=== PATIENT | female | born 2000 | race Asian ===

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

== ENCOUNTER 2020-12-25 12:22 | Emergency (ER) | payer OTHER, SELFPAY ==
[2020-12-25 12:24] VITALS: BP 121/79; PULSE 89; RESP 16; TEMP 36.6; O2SAT 100; BMI 24.5
--- NOTE | 2020-12-25 12:38 | EKG12_ITS ---
Test Reason : Blood Pressure : / mmHG Vent. Rate : 083 BPM Atrial Rate : 083 BPM P-R Int : 150 ms QRS Dur : 082 ms QT Int : 358 ms P-R-T Axes : 048 078 -05 degrees QTc Int : 420 ms Normal sinus rhythm Normal ECG Confirmed by ALEISHA KOEHLER, TESSA ([id number]), design editor EMILY CAZARES ([id number]) on 12/30/2020 7:40:09 AM Referred By: NICOLE Confirmed By:TSESA MORAES MD
[2020-12-25 13:44] LABS: Bacteria 0 SEEN /hpf (None Seen); Mucous, Urine 0 SEEN /hpf (<or=2+)
[2020-12-25 13:58] LABS: Absolute Lymphocyte Count 1.43 X10^3/uL (0.83-4.51); Absolute Neutrophil Count 8.3 X10^3/uL (2.0-7.7); Basophil# 0.02 X10^3/uL; Basophil% 0.2 % (0-1); Eosinophil# 0.07 X10^3/uL; Eosinophils% 0.7 % (0-5); Hematocrit 41.1 % (37-47); Hemoglobin 13.1 g/dL (12.0-15.0); Lymphocyte # 1.43 X10^3/ul (0.83-4.51); Lymphocyte % 13.6 % (19-41); Mean Corp Hgb Conc 31.9 g/dL (32-36); Mean Corpuscular Hgb 29.7 pg (27.0-32.0); Mean Corpuscular Volume 93.2 fL (81-99); Mean Platelet Vol. 10.5 fl (6.2-12.0); Monocyte% 6.6 % (0-10); NRBC Flagged by Analyzer 0 % (0-5); Neutrophil # 8.29 X10^3/uL (2.7-7.7); Neutrophil % 78.7 % (47-70); Platelet Count 257 K/mm3 (150-450); RBC Distribution Width CV 12.6 % (11.6-14.6); RBC Distribution Width SD 43.6 fl (35.1-43.9); Red Blood Count 4.41 M/mm3 (4.2-5.4); White Blood Count 10.5 K/mm3 (4.4-11.0)
--- NOTE | 2020-12-25 14:00 | RAD_ITS ---
STUDY: X-RAY CHEST REASON FOR EXAM: Female, 20 years old. Chest tightness. Difficulty breathing. TECHNIQUE: Single AP portable view of the chest. COMPARISON: None. FINDINGS: The lungs are clear and expanded. Scattered calcified granulomas. There is no demonstrated pleural abnormality. Normal size heart. Normal mediastinum and zohra. Normal visualized pulmonary arteries. Normal visualized aortic arch and descending thoracic aorta. Normal visualized thoracic spine. Normal visualized ribs, clavicles, and shoulders. There is no demonstrated abnormality of the visualized soft tissue structures of the upper abdomen. RAD/Chest 1 View (Portable) IMPRESSION: Normal x-ray examination of the chest. Scattered calcified granulomas. Electronically Signed: Collin Miguel MD at 14:18 EDT , Service support ,
[2020-12-25 14:03] LABS: Color, Urine Yellow (Yellow); Glucose, Dipstick Normal (Normal); Ketone-Dipstick Negative (Negative); Leukocyte Esterase-Dipstick Negative /ul (Negative); Nitrite-Dipstick Negative (Negative); Occult Blood-Urine 10 /ul (Negative); Protein-Dipstick Negative (Negative); Urine Bilirubin Dipstick Negative (Negative); Urine Clarity Clear (Clear); Urine Urobilinogen Normal (Normal)
[2020-12-25 14:09] LABS: Anion Gap 3 (5-15); BUN 11 mg/dL (7-18); BUN/Creat Ratio 15.6 RATIO (10-20); Calcium,Total 8.7 mg/dL (8.5-10.1); Chloride 110 mmol/L (98-107); EST Glomerular Filtration Rate 112 mL/min (>60); Est Glom Filt Rate - Afr Amer 136 mL/min (>60); Glucose 98 mg/dL (74-106); Potassium 3.8 mmol/L (3.5-5.1); Sodium Level 141 mmol/L (136-145)
--- NOTE | 2020-12-25 14:09 | EX.ED.DYSGE1 ---
HPI History of Present Illness Chief Complaint: Chest Other Informant: patient Onset/Context/Timing Onset: Today Current Severity: Mild Maximum Severity: Moderate Narrative Narrative: Patient presents with chest pain and shortness of breath. She states she had a headache and did not feel well yesterday. This morning after eating breakfast she developed chest pain and felt her heart was racing. She did feel short of breath. She states symptoms are improved at this time but not completely resolved. She does report a history of irregular heartbeat that she has been to the hospital for multiple times. She does not know the specific diagnosis but states her doctor told her it was nothing to worry about. [facility] Medical History Irregular heartbeat Home Medications Control 1 tab PO/SL DAILY 12/25/20 [History Last Taken Unknown] Allergy/AdvReac Type Severity Reaction Status Date / Time No Known Allergies Allergy Verified 12/25/20 12:26 Social History Smoking Status: Never smoker ROS ROS ED Constitutional Constitutional ED: Denies chills or fever(s) Eyes Eyes: Denies change in vision ENT ENT ED: Denies sore throat Cardiovascular Cardiovascular: Reports chest pain Respiratory/Chest Respiratory/Chest: Reports dyspnea; Denies cough Gastrointestinal Gastrointestinal: Denies abdominal pain, diarrhea, nausea or vomiting Genitourinary Genitourinary ED: Denies dysuria Musculoskeletal Musculoskeletal: Denies back pain Integumentary Denies rash Neurologic Neurologic: Reports headache(s); Denies weakness Psychiatric Psychiatric: Denies anxiety or depression Allergic/Immunologic Allergic/Immunologic ED: Denies urticaria EXAM Physical Exam Const Vital Signs: 12/25/20 12:24 12/25/20 13:41 Temperature 97.8 F Temperature Source Temporal Pulse Rate 89 Respiratory Rate 16 Respiratory Effort Normal Non-Labored Blood Pressure 121/79 H Blood Pressure Mean 93 Pulse Ox 100 Oxygen Delivery Method Room Air Positive well nourished and well developed General Appearance ED: well developed HEENT Reports normocephalic and head/scalp atraumatic Eyes PERRL and EOMs intact bilaterally Neck supple Chest Wall inspection of chest normal and palpation of chest normal Resp normal respiratory effort and clear to auscultation bilaterally Cardio regular rate and regular rhythm GI normal to inspection, nondistended, normoactive bowel sounds Palpation: soft Extremity normal to inspection Neuro oriented x3 and no sensory deficits noted Sensorium / Orientation: alert Motor Exam: strength 5/5 throughout Psych mental status grossly normal Skin no rashes or lesions noted MDM MDM MDM Narrative Medical decision making narrative: Labs, EKG, chest x-ray obtained. Lab Data Attestation: I reviewed the patient's lab results. Labs: Laboratory Results - last 24 hr 12/25/20 12/25/20 12/25/20 13:34 13:45 13:45 WBC 10.5 RBC 4.41 Hgb 13.1 Hct 41.1 MCV 93.2 MCH 29.7 MCHC 31.9 L RDW Std Deviation 43.6 RDW Coeff of Nusrat 12.6 Plt Count 257 MPV 10.5 Immature Gran % (Auto) 0.200 Neut % (Auto) 78.7 H Lymph % (Auto) 13.6 L Rogers % (Auto) 6.6 Eos % (Auto) 0.7 Baso % (Auto) 0.2 Absolute Neuts (auto) 8.3 H Absolute Lymphs (auto) 1.43 Nucleated RBC % 0 D-Dimer Quant (PE/DVT) Sodium 141 Potassium 3.8 Chloride 110 H Carbon Dioxide 28.0 Anion Gap 3 L BUN 11 Creatinine 0.70 Estim Creat Clear Calc 110.70 Est GFR (MDRD) Af Amer 136 Est GFR (MDRD) Non-Af 112 BUN/Creatinine Ratio 15.6 Glucose 98 Calcium 8.7 Troponin I High Sens Urine Color Yellow Urine Clarity Clear Urine pH 7.0 Ur Specific [place] 1.010 Urine Protein Negative Urine Glucose (UA) Normal Urine Ketones Negative Urine Occult Blood 10 H Urine Nitrite Negative Urine Bilirubin Negative Urine Urobilinogen Normal Ur Leukocyte Esterase Negative Urine RBC 0-5 SEEN Urine WBC 0-5 SEEN Ur Squamous Epith Cells 0-5 SEEN Urine Bacteria 0 SEEN Urine Mucus 0 SEEN Urine Test Negative 12/25/20 12/25/20 13:45 14:21 WBC RBC Hgb Hct MCV MCH MCHC RDW Std Deviation RDW Coeff of Nusrat Plt Count MPV Immature Gran % (Auto) Neut % (Auto) Lymph % (Auto) [place] % (Auto) Eos % (Auto) Baso % (Auto) Absolute Neuts (auto) Absolute Lymphs (auto) Nucleated RBC % D-Dimer Quant (PE/DVT) <= 0.27 Sodium Potassium Chloride Carbon Dioxide Anion Gap BUN Creatinine Estim Creat Clear Calc Est GFR (MDRD) Af Amer Est GFR (MDRD) Non-Af BUN/Creatinine Ratio Glucose Calcium Troponin I High Sens 3 Urine Color Urine Clarity Urine pH Ur Specific [place] Urine Protein Urine Glucose (UA) Urine Ketones Urine Occult Blood Urine Nitrite Urine Bilirubin Urine Urobilinogen Ur Leukocyte Esterase Urine RBC Urine WBC Ur Squamous Epith Cells Urine Bacteria Urine Mucus Urine Test Radiography Chest X-Ray - ED: 1 View, Read by ED Physician, Normal, Heart, Lungs and Mediastinum Diagnostic Testing: Radiology Impression Chest X-Ray 12/25/20 14:00 IMPRESSION: Normal x-ray examination of the chest. Scattered calcified granulomas. Electronically Signed: Collin Miguel MD at 14:18 EDT , Service support , EKG Initial EKG: Attestation: I personally reviewed and interpreted this EKG as follows: Interpretation: Sinus Rhythm (Sinus 83 with no acute ischemia.) Treatment and Re-Evaluation Comments:: Lab work is reviewed and unremarkable. D-dimer and troponin both negative. Chest x-ray per my interpretation shows no abnormalities. Radiologist interpretation is reviewed. On repeat examination patient resting comfortably. Test results discussed with her. She is comfortable with discharge and will follow up as needed. Return instructions provided. I will give her information for cardiology because she continues to have episodes of irregular heartbeat. Discharge Plan Triage Chief Complaint: Chest Other ED Provider: Millicent Gray Dx/Rx/DC Orders Clinical Impression: Chest pain, Palpitations Instructions: ED Chest Pain, Uncertain Cause, ED Palpitations Prescriptions: No Action Control 1 tab PO/SL DAILY RF: 0 Primary Care Provider: [facility] Doctor,Out of Referrals: Marshall Quigley MD [STAFF PHYSICIAN] - As Needed [facility] Doctor,Out of [Primary Care Provider] - Disposition Disposition: Home, Self Care
[2020-12-25 14:20] LABS: Internal QC Validated? YES +Cl - CLEAR BKGD; Pregnancy, Urine Negative Negative; Red Blood Cells-Urine 0-5 SEEN /hpf (0-5); Squamous Epithelial Cells - UA 0-5 SEEN /hpf (5-10); White Blood Cells 0-5 SEEN /hpf (0-5)
[2020-12-25 14:43] LABS: D-Dimer Quantitative (DVT/PE) <= 0.27 FEU/ug/m (0.27-0.49)
[2020-12-25 14:47] LABS: Troponin-I HS 3 pg/mL (3.0-54.0)
[2020-12-25 15:01] VITALS: BP 124/77; PULSE 62; RESP 15; O2SAT 98
== END 2020-12-25 15:02 | disposition home or self-care (01) ==
LOC: ED 14:55
PROVIDERS: Emergency Provider Emergency Medicine
DX: R07.89 Other chest pain (principal); R00.2 Palpitations; R06.02 Shortness of breath; R51.9 Headache, unspecified
CPT/HCPCS: 71045; 80048; 81001; 81025; 84484; 85025; 85379; 93005; 99285; A4216

== ENCOUNTER 2021-09-23 13:39 | Emergency (ER) | payer OTHER, SELFPAY ==
[2021-09-23 13:40] VITALS: BP 116/82; PULSE 113; RESP 15; TEMP 35.8; O2SAT 98; BMI 24.7
--- NOTE | 2021-09-23 14:03 | EDS_ITS ---
HPI History of Present Illness Chief Complaint: Nausea/Vomiting Informant: patient Narrative Narrative: Patient is a 20-year-old female denies any significant past medical history no surgical history presenting with nausea, vomiting, epigastric discomfort after binge drinking last night. Patient states she started 7 times since 4 AM this morning. Denies any black or blood in her vomit. States she has not had a bowel movement today. No she does feel little dizzy. States that she drank a mixture of beer, fireball whiskey and 4 [place] last night. Patient does think she threw up her control pill this morning. No other complaints at this time. [facility] Medical History Irregular heartbeat Home Medications drospirenone-ethinyl estradiol 1 ea PO DAILY 03/06/19 [History Last Taken 03/06/19] naproxen 500 mg PO BID PRN #20 tab 03/13/19 [Rx Last Taken Unknown] pseudoephedrine-guaifenesin 1 ea PO BID #8 tab.er.12h 03/13/19 [Rx Last Taken Unknown] Control 1 tab PO/SL DAILY 12/25/20 [History Last Taken Unknown] ondansetron 4 mg PO Q6H PRN #10 tab 09/23/21 [Rx Last Taken Unknown] Allergy/AdvReac Type Severity Reaction Status Date / Time No Known Allergies Allergy Verified 12/31/20 08:51 Social History Smoking Status: Never smoker ROS [facility] ED Constitutional Constitutional ED: Denies chills or fever(s) Eyes Eyes: Denies change in vision ENT ENT ED: Denies rhinorrhea or sore throat Cardiovascular Cardiovascular: Reports racing heartbeat; Denies chest pain Respiratory/Chest Respiratory/Chest: Denies cough or dyspnea Gastrointestinal Gastrointestinal: Reports abdominal pain, nausea and vomiting; Denies constipation or diarrhea Genitourinary Genitourinary ED: Denies dysuria or hematuria Musculoskeletal Musculoskeletal: Denies myalgias Integumentary Denies rash Neurologic Neurologic: Denies headache(s) or weakness Psychiatric Psychiatric: Denies depression EXAM Physical Exam Const Vital Signs: 09/23/21 13:40 09/23/21 14:27 Temperature 96.5 F L Temperature Source Temporal Pulse Rate 113 H 64 Respiratory Rate 15 18 Blood Pressure 116/82 H Blood Pressure Mean 93 Pulse Ox 98 97 Oxygen Delivery Method Room Air Room Air Positive well nourished and well developed General Appearance ED: well developed and NAD HEENT Reports dry mucous membranes Negative for trauma or tenderness Mouth ED: Yes dry mucous membranes Mouth: dry mucous membranes Eyes PERRL and EOMs intact bilaterally Neck supple Chest Wall inspection of chest normal Resp normal respiratory effort and clear to auscultation bilaterally Cardio regular rhythm and no murmurs Rate: tachycardic GI normal to inspection, nondistended, normoactive bowel sounds and non-tender Palpation: soft Back/Spine no CVA tenderness Extremity normal to inspection Neuro oriented x3 and CN's II-XII intact bilaterally Sensorium / Orientation: alert Motor Exam: Negative for general weakness Psych mental status grossly normal Skin no rashes or lesions noted and no wounds MDM MDM MDM Narrative Medical decision making narrative: Patient evaluated for nausea and vomiting after binge drinking last night. I suspect her symptoms are secondary to the sequelae of alcohol intoxication. She will be given IV fluids, IV Pepcid and IV Zofran. Physical exam is relatively benign however she does appear mildly dehydrated. Will check labs looking for signs of transaminitis or pancreatitis. Will reevaluate and p.o. challenge. If patient is feeling better will discharge home with Zofran. As patient did vomit up her control pill this morning she is counseled to use a backup method such as condoms for contraceptives. Repeat evaluation patient significantly improved. Will discharge home with prescription for Zofran. Lab Data Labs: Laboratory Results - last 24 hr 09/23/21 09/23/21 09/23/21 14:05 14:05 14:05 WBC 5.7 RBC 4.58 Hgb 13.8 Hct 41.7 MCV 91.0 MCH 30.1 MCHC 33.1 RDW Std Deviation 41.2 RDW Coeff of Nusrat 12.5 Plt Count 283 MPV 10.0 Immature Gran % (Auto) 0.200 Neut % (Auto) 65.0 Lymph % (Auto) 25.3 [place] % (Auto) 7.9 Eos % (Auto) 1.1 Baso % (Auto) 0.5 Absolute Neuts (auto) 3.7 Absolute Lymphs (auto) 1.44 Nucleated RBC % 0 Sodium 140 Potassium 3.8 Chloride 106 Carbon Dioxide 26.0 Anion Gap 8 BUN 8 Creatinine 0.70 Estim Creat Clear Calc 106.05 Est GFR (MDRD) Af Amer 135 Est GFR (MDRD) Non-Af 112 BUN/Creatinine Ratio 11.4 Glucose 102 Calcium 8.7 Total Bilirubin 0.40 AST 12 L ALT 18 Alkaline Phosphatase 58 Total Protein 8.2 Albumin 3.7 Globulin 4.5 H Albumin/Globulin Ratio 0.8 L Lipase 99 Serum , Qual NEGATIVE Discharge Plan Triage Chief Complaint: Nausea/Vomiting ED Provider: Lynne Willams Dx/Rx/DC Orders Clinical Impression: Nausea & vomiting, Hangover effect Instructions: ED Vomiting (Adult) Prescriptions: New ondansetron 4 mg tablet,disintegrating 4 mg PO Q6H PRN (Reason: nausea and vomiting) Qty: 10 RF: 0 No Action drospirenone-ethinyl estradiol 1 EACH tablet 1 ea PO DAILY RF: 0 naproxen 500 MG tablet 500 mg PO BID PRN Qty: 20 RF: 0 pseudoephedrine-guaifenesin 1 EACH tablet extended release 12 hr 1 ea PO BID Qty: 8 RF: 0 Control 1 tab PO/SL DAILY RF: 0 Primary Care Provider: Care Physician,No Primary Referrals: [facility] [GROUP OF PHYSICIANS] - Care Physician,No Primary [Primary Care Provider] - Activity Restrictions/Additional Instructions: Since you possibly threw up your control pill today please use a backup contraceptive method such as condoms or abstinence until your next cycle. Avoid binge drinking. Disposition Disposition: Home, Self Care
[2021-09-23] MEDS: Ondansetron 4 MG/2 ML Vial IV (14:05)
[2021-09-23] MEDS: 0.9% Normal Saline 1,000 ML 1000 ML IV (14:05)
[2021-09-23 14:14] LABS: Absolute Lymphocyte Count 1.44 X10^3/uL (0.83-4.51); Absolute Neutrophil Count 3.7 X10^3/uL (2.0-7.7); Basophil# 0.03 X10^3/uL; Basophil% 0.5 % (0-1); Eosinophil# 0.06 X10^3/uL; Eosinophils% 1.1 % (0-5); Hematocrit 41.7 % (37-47); Hemoglobin 13.8 g/dL (12.0-15.0); Lymphocyte # 1.44 X10^3/ul (0.83-4.51); Lymphocyte % 25.3 % (19-41); Mean Corp Hgb Conc 33.1 g/dL (32-36); Mean Corpuscular Hgb 30.1 pg (27.0-32.0); Monocyte# 0.45 X10^3/uL; Monocyte% 7.9 % (0-10); NRBC Flagged by Analyzer 0 % (0-5); Platelet Count 283 K/mm3 (150-450); RBC Distribution Width CV 12.5 % (11.6-14.6); RBC Distribution Width SD 41.2 fl (35.1-43.9); Red Blood Count 4.58 M/mm3 (4.2-5.4); White Blood Count 5.7 K/mm3 (4.4-11.0)
[2021-09-23] MEDS: Famotidine 200 MG/20 ML MDV 20 MG in 0.9% Normal Saline (Pres. free 8 ML 300 MG IV (14:26)
[2021-09-23 14:27] VITALS: PULSE 64; RESP 18; O2SAT 97
[2021-09-23 14:30] LABS: ALB/GLOB Ratio 0.8 RATIO (0.9-2.4); AST(SGOT) 12 U/L (15-37); Alanine Aminotransfer ALT/SGPT 18 U/L (13-56); Albumin, Serum 3.7 g/dL (3.2-5.0); Alkaline Phosphatase 58 U/L (45-117); Anion Gap 8 (5-15); BUN 8 mg/dL (7-18); BUN/Creat Ratio 11.4 RATIO (10-20); Calcium,Total 8.7 mg/dL (8.5-10.1); Chloride 106 mmol/L (98-107); EST Glomerular Filtration Rate 112 mL/min (>60); Est Glom Filt Rate - Afr Amer 135 mL/min (>60); Estimated Creatinine Clearance 106.05 ml/min; Globulin 4.5 g/dL (2.2-4.2); Glucose 102 mg/dL (74-106); Lipase 99 U/L (73-393); Potassium 3.8 mmol/L (3.5-5.1); Protein, Total 8.2 g/dL (6.4-8.2); Sodium Level 140 mmol/L (136-145)
[2021-09-23 14:40] LABS: Internal QC Validated? YES +Cl - CLEAR BKGD; Pregnancy, Serum, hCG Quali. NEGATIVE Negative
[2021-09-23 15:21] VITALS: PULSE 70; RESP 16; O2SAT 99
== END 2021-09-23 15:22 | disposition home or self-care (01) ==
PROVIDERS: Emergency Provider Emergency Medicine; Visit Provider Emergency Medicine
DX: R11.2 Nausea with vomiting, unspecified (principal); F10.129 Alcohol abuse with intoxication, unspecified; Y90.9 Presence of alcohol in blood, level not specified
CPT/HCPCS: 80053; 83690; 84703; 85025; 96361; 96374; 96375; 99283; J7030; J2405; J3490

== ENCOUNTER 2021-12-24 16:08 | Emergency (ER) | payer OTHER, SELFPAY ==
[2021-12-24 16:09] VITALS: BP 117/81; PULSE 89; RESP 16; TEMP 36.3; O2SAT 100; BMI 24.7
--- NOTE | 2021-12-24 16:23 | EKG12_ITS ---
Test Reason : DIZZYNESS Blood Pressure : / mmHG Vent. Rate : 084 BPM Atrial Rate : 084 BPM P-R Int : 162 ms QRS Dur : 068 ms QT Int : 354 ms P-R-T Axes : 047 062 004 degrees QTc Int : 418 ms Normal sinus rhythm Normal ECG Confirmed by KRUPA KOEHLER, JOSEFINA ([id number]), website/blog editor EMILY CAZARES ([id number]) on 12/28/2021 10:48:29 AM Referred By: PL Confirmed By:JOSEFINA GENTILE MD
--- NOTE | 2021-12-24 16:24 | EX.ED.DYSGE1 ---
HPI History of Present Illness Chief Complaint: Palpitations Informant: patient Narrative Narrative: Patient actually tells me that she gets more lightheaded with changing positions. She does not really have palpitations much. She has had these events occur many times. She has had them evaluated in this country and in [place]. She has always been told they were due to palpitations but she does not always feel that. She has no chest pain or dyspnea. She states for the last 4 to 5 hours she has been feeling very lightheaded if she gets up quickly or if she even changes position and turns quickly. It is a little hard to say how much of this is near syncope and how much is vertigo. But there seems to be some component of both. She says she has been eating and drinking. She thinks it is enough. She is on control but has been on that for a long time. Although she does have origins in [place], she has not traveled anywhere in a long time. She has no immobilization or surgery history. No family history of early cardiac , heart disease or pulmonary emboli. Staying still makes her symptoms much better. Moving makes them worse. She has never passed out. She has never fallen and hurt herself. [facility] Medical History Irregular heartbeat Home Medications drospirenone 3 mg-ethinyl estradiol 0.02 mg tablet 1 ea PO DAILY 03/06/19 [History Last Taken 03/06/19] Control 1 tab PO/SL DAILY 12/25/20 [History Last Taken Unknown] meclizine 25 mg tablet 25 mg PO TID PRN dizziness #20 tabs 12/24/21 [Rx Last Taken Unknown] Allergy/AdvReac Type Severity Reaction Status Date / Time No Known Allergies Allergy Verified 12/24/21 16:09 Social History Smoking Status: Never smoker ROS ROS ED Constitutional Constitutional ED: Denies chills or fever(s) Eyes Eyes: Denies blurry vision or change in vision ENT ENT ED: Denies rhinorrhea or sore throat Cardiovascular Cardiovascular: Denies chest pain or racing heartbeat Respiratory/Chest Respiratory/Chest: Denies cough or dyspnea Gastrointestinal Gastrointestinal: Denies abdominal pain, diarrhea, melena, nausea or vomiting Genitourinary Genitourinary ED: Denies hematuria Musculoskeletal Musculoskeletal: Denies arthralgias or myalgias Integumentary Denies rash Neurologic Neurologic: Denies headache(s), paresthesias or weakness Endocrine Endocrinology: Denies polydipsia or polyuria Hematologic/Lymphatic Hematologic/Lymphatic: Denies easy bleeding or easy bruising Allergic/Immunologic Allergic/Immunologic ED: Denies urticaria EXAM Physical Exam Const Vital Signs: 12/24/21 16:09 12/24/21 16:41 12/24/21 18:19 Temperature 97.3 F L Temperature Source Temporal Pulse Rate 89 76 Respiratory Rate 16 18 Respiratory Effort Normal Non-Labored Respiratory Pattern Normal Blood Pressure 117/81 H 108/78 Blood Pressure Mean 93 88 Pulse Ox 100 100 Oxygen Delivery Method Room Air Room Air 12/24/21 18:44 Temperature Temperature Source Pulse Rate Respiratory Rate 16 Respiratory Effort Respiratory Pattern Blood Pressure Blood Pressure Mean Pulse Ox Oxygen Delivery Method Positive well nourished and well developed General Appearance ED: well developed and NAD HEENT HEENT Narrative: Minimally dry. Eyes PERRL and EOMs intact bilaterally Eyes Narrative: Pupils are normal. Neck supple and no JVD Chest Wall inspection of chest normal Resp normal respiratory effort and clear to auscultation bilaterally Resp Narrative: No pain with deep breath. Auscultation: Negative for rales, rhonchi or wheezes Cardio regular rate, regular rhythm and no murmurs Rate: Negative for tachycardic GI normal to inspection, nondistended, normoactive bowel sounds, non-tender and non-distended Narrative: No CVA tenderness Back/Spine no CVA tenderness Extremity normal to inspection Extremity Narrative: No edema cords or tenderness or asymmetry. Distal pulses are normal x4. Neuro oriented x3 and no sensory deficits noted Motor Exam: strength 5/5 throughout Psych mental status grossly normal Skin no rashes or lesions noted MDM MDM MDM Narrative Medical decision making narrative: Patient CBC and electrolytes are normal. Your urine is clean. Alcohol is negative. Troponin is negative. I am awaiting the test. I have called the lab. She is not having any abdominal or pelvic pain so it would be highly unlikely that this would be ectopic. Blood pressure and heart rate has been normal. I will get this result back. Patient was gotten up walked around. She feels much better. She has a little bit of vertigo when she turns and changes direction but is much less. I will get her some meclizine. She will follow-up. Lab Data Attestation: I reviewed the patient's lab results. Labs: Laboratory Results - last 24 hr 12/24/21 12/24/21 12/24/21 16:35 16:35 16:35 WBC 7.4 RBC 4.41 Hgb 13.2 Hct 40.1 MCV 90.9 MCH 29.9 MCHC 32.9 RDW Std Deviation 39.8 RDW Coeff of Nusrat 11.9 Plt Count 396 MPV 9.8 Immature Gran % (Auto) 0.100 Neut % (Auto) 54.3 Lymph % (Auto) 39.1 Falls % (Auto) 4.9 Eos % (Auto) 1.2 Baso % (Auto) 0.4 Absolute Neuts (auto) 4.0 Absolute Lymphs (auto) 2.88 Nucleated RBC % 0 Sodium 140 Potassium 3.5 Chloride 107 Carbon Dioxide 24.0 Anion Gap 9 BUN 10 Creatinine 0.85 Estim Creat Clear Calc 86.61 Est GFR (MDRD) Af Amer 109 Est GFR (MDRD) Non-Af 90 BUN/Creatinine Ratio 11.8 Glucose 107 H Calcium 9.3 Troponin I High Sens 3 Serum , Qual Urine Color Urine Clarity Urine pH Ur Specific [place] Urine Protein Urine Glucose (UA) Urine Ketones Urine Occult Blood Urine Nitrite Urine Bilirubin Urine Urobilinogen Ur Leukocyte Esterase Urine RBC Urine WBC Ur Squamous Epith Cells Urine Bacteria Urine Mucus Urine Opiates Screen Urine Methadone Screen Ur Barbiturates Screen Ur Phencyclidine Scrn Ur Amphetamines Screen MDMA (Ecstasy) Screen U Benzodiazepines Scrn Urine Cocaine Screen U Cannabinoids Screen Ur Drug Screen Comment Ethyl Alcohol 3.0 12/24/21 12/24/21 12/24/21 16:35 16:55 16:55 WBC RBC Hgb Hct MCV MCH MCHC RDW Std Deviation RDW Coeff of Nusrat Plt Count MPV Immature Gran % (Auto) Neut % (Auto) Lymph % (Auto) Falls % (Auto) Eos % (Auto) Baso % (Auto) Absolute Neuts (auto) Absolute Lymphs (auto) Nucleated RBC % Sodium Potassium Chloride Carbon Dioxide Anion Gap BUN Creatinine Estim Creat Clear Calc Est GFR (MDRD) Af Amer Est GFR (MDRD) Non-Af BUN/Creatinine Ratio Glucose Calcium Troponin I High Sens Serum , Qual NEGATIVE Urine Color Straw Urine Clarity Clear Urine pH 8.[address] [place] [address] 1.010 Urine Protein Negative Urine Glucose (UA) Normal Urine Ketones Negative Urine Occult Blood 250 H Urine Nitrite Negative Urine Bilirubin Negative Urine Urobilinogen Normal Ur Leukocyte Esterase 25 H Urine RBC 0 SEEN Urine WBC 0-5 SEEN Ur Squamous Epith Cells 0-5 SEEN Urine Bacteria 1+ Urine Mucus 0 SEEN Urine Opiates Screen NEGATIVE Urine Methadone Screen NEGATIVE Ur Barbiturates Screen NEGATIVE Ur Phencyclidine Scrn NEGATIVE Ur Amphetamines Screen NEGATIVE MDMA (Ecstasy) Screen NEGATIVE U Benzodiazepines Scrn NEGATIVE Urine Cocaine Screen NEGATIVE U Cannabinoids Screen NEGATIVE Ur Drug Screen Comment Ethyl Alcohol Radiography Diagnostic Testing: Clinical Impression(s) from Imaging Studies Chest X-Ray 12/24/21 16:41 IMPRESSION: Normal x-ray examination of the chest. Electronically Signed: Jae De La Torre MD at 16:55 EDT Reading Location ID and State: [facility] / [place] Tel , Service support , EKG Initial EKG: Comments: EKG done for lightheadedness read by me shows a normal sinus rhythm with a rate of 84. No ventricular ectopy. No acute ST elevation or depression. NC interval, QRS duration and QTc normal. This EKG was done during times when she still felt she was having symptoms. Discharge Plan Triage Chief Complaint: Palpitations ED Provider: Higinio Avery Dx/Rx/DC Orders Clinical Impression: Vertigo, Syncope, near Prescriptions: New meclizine 25 mg tablet 25 mg PO TID PRN (Reason: dizziness) Qty: 20 0RF No Action drospirenone-ethinyl estradiol 1 EACH tablet 1 ea PO DAILY Control 1 tab PO/SL DAILY Primary Care Provider: Care Physician,No Primary Referrals: Jesi Rider DO [Med Staff - Active Staff] - 3-5 Days Care Physician,No Primary [Primary Care Provider] - Disposition Disposition: Home, Self Care
--- NOTE | 2021-12-24 16:41 | RAD_ITS ---
STUDY: X-RAY CHEST REASON FOR EXAM: Female, 21 years old. cardiomegaly TECHNIQUE: Single AP portable view of the chest. COMPARISON: None. FINDINGS: The lungs are clear and expanded. There is no demonstrated pleural abnormality. Normal size heart. Normal mediastinum and zohra. Normal visualized pulmonary arteries. Normal visualized aortic arch and descending thoracic aorta. Normal visualized thoracic spine. Normal visualized ribs, clavicles, and shoulders. There is no demonstrated abnormality of the visualized soft tissue structures of the upper abdomen. RAD/Chest 1 View (Portable) IMPRESSION: Normal x-ray examination of the chest. Electronically Signed: Jae De La Torre MD at 16:55 EDT ,
[2021-12-24 16:50] LABS: Absolute Lymphocyte Count 2.88 X10^3/uL (0.83-4.51); Basophil# 0.03 X10^3/uL; Basophil% 0.4 % (0-1); Eosinophil# 0.09 X10^3/uL; Eosinophils% 1.2 % (0-5); Hematocrit 40.1 % (37-47); Hemoglobin 13.2 g/dL (12.0-15.0); Lymphocyte # 2.88 X10^3/ul (0.83-4.51); Lymphocyte % 39.1 % (19-41); Mean Corp Hgb Conc 32.9 g/dL (32-36); Mean Corpuscular Hgb 29.9 pg (27.0-32.0); Mean Corpuscular Volume 90.9 fL (81-99); Mean Platelet Vol. 9.8 fl (6.2-12.0); Monocyte# 0.36 X10^3/uL; Monocyte% 4.9 % (0-10); NRBC Flagged by Analyzer 0 % (0-5); Neutrophil # 3.99 X10^3/uL (2.7-7.7); Neutrophil % 54.3 % (47-70); Platelet Count 396 K/mm3 (150-450); RBC Distribution Width CV 11.9 % (11.6-14.6); RBC Distribution Width SD 39.8 fl (35.1-43.9); Red Blood Count 4.41 M/mm3 (4.2-5.4); White Blood Count 7.4 K/mm3 (4.4-11.0)
[2021-12-24 16:58] LABS: Anion Gap 9 (5-15); BUN 10 mg/dL (7-18); BUN/Creat Ratio 11.8 RATIO (10-20); Calcium,Total 9.3 mg/dL (8.5-10.1); Chloride 107 mmol/L (98-107); Creatinine, Serum 0.85 mg/dL (0.55-1.02); EST Glomerular Filtration Rate 90 mL/min (>60); Est Glom Filt Rate - Afr Amer 109 mL/min (>60); Estimated Creatinine Clearance 86.61 ml/min; Glucose 107 mg/dL (74-106); Potassium 3.5 mmol/L (3.5-5.1); Sodium Level 140 mmol/L (136-145); Troponin-I HS 3 pg/mL (3.0-54.0)
[2021-12-24] MEDS: 0.9% Normal Saline 1,000 ML 1000 ML IV (17:02)
[2021-12-24 17:03] LABS: Mucous, Urine 0 SEEN /hpf (<or=2+); Red Blood Cells-Urine 0 SEEN /hpf (0-5)
[2021-12-24 17:13] LABS: Color, Urine Straw (Yellow); Glucose, Dipstick Normal (Normal); Ketone-Dipstick Negative (Negative); Leukocyte Esterase-Dipstick 25 /ul (Negative); Nitrite-Dipstick Negative (Negative); Occult Blood-Urine 250 /ul (Negative); Protein-Dipstick Negative (Negative); Urine Bilirubin Dipstick Negative (Negative); Urine Clarity Clear (Clear); Urine Urobilinogen Normal (Normal)
[2021-12-24 17:33] LABS: White Blood Cells 0-5 SEEN /hpf (0-5)
[2021-12-24 17:34] LABS: Bacteria 1+ /hpf (None Seen); Squamous Epithelial Cells - UA 0-5 SEEN /hpf (5-10)
--- NOTE | 2021-12-24 17:39 | CM.ED ---
SW Note SW reviewed tracker and noted patient has no PCP. NICKY met with patient. She is a [employer] student. Patient was provided with list of PCP with [facility] and [facility] for reference. No other concerns or issues noted. Radha PARTIDA
[2021-12-24 18:19] VITALS: BP 108/78; PULSE 76; RESP 18; O2SAT 100
[2021-12-24 18:39] LABS: Internal QC Validated? YES +Cl - CLEAR BKGD; Pregnancy, Serum, hCG Quali. NEGATIVE Negative
[2021-12-24 18:44] VITALS: RESP 16
[2021-12-24 19:19] LABS: Amphetamine Urine VISTA NEGATIVE (<1000 ng/mL); Barbiturate Urine VISTA NEGATIVE (< 200 ng/mL); Benzodiazepine Urine VISTA NEGATIVE (< 200 ng/mL); Cocaine Urine VISTA NEGATIVE (< 300 ng/mL); Ecstacy Urine VISTA NEGATIVE (< 500 ng/mL); Methadone Urine VISTA NEGATIVE (< 300 ng/mL); PCP Urine VISTA NEGATIVE (< 25 ng/mL); THC Urine VISTA NEGATIVE (< 50 ng/mL); Vista UDS pH Range 8
[2021-12-24] MEDS: Meclizine HCl 25 MG Tablet PO (19:19)
== END 2021-12-24 19:22 | disposition home or self-care (01) ==
PROVIDERS: Emergency Provider Emergency Medicine; Visit Provider Emergency Medicine
DX: R42 Dizziness and giddiness (principal); R00.2 Palpitations; R55 Syncope and collapse
CPT/HCPCS: 71045; 80048; 80307; 81001; 82077; 84484; 84703; 85025; 93005; 96360; 99284